=== PATIENT | male | born 1990 | race African-American/Black ===

== ENCOUNTER 2016-06-23 20:44 | Emergency (ER) | payer BC ==
--- NOTE | 2016-06-23 20:59 | EDM.PDOC ---
ED HPI RENAL/ - General Chief Complaint: Genitourinary Problem Stated Complaint: BLOOD IN URINE Time Seen by Provider: 06/23/16 20:59 Source of Information: Reports: Patient History Limitations: Reports: No limitations - History of Present Illness INITIAL COMMENTS - FREE TEXT/NARRATIVE: Patient is a 25-year-old male presents ED complaining of painful urination with hematuria. States it started approximately 4:30 this afternoon after running approximately 10 miles. States he run 10 + miles daily in preparation for marathon in August. States the pain is worsened with urination, notes increased frequency, and smaller amounts of urine with each frequency. States he's had similar symptoms approximately 3 years ago improved with drinking copious amounts of water. States last time he had sexual intercourse was one year ago. Denies any recent trauma to his genital area that could cause this hematuria. Nor is he complaining of fever/chills, abdominal pain, nausea/vomiting, flank discomfort, history of kidney stones, rash, recent upper respiratory infection, muscle soreness, or any additional complaints. Timing/Duration: Reports: Constant Location: Reports: urethral Quality: Reports: burning Severity: mild Worsens with: Reports: urinating Context: Reports: activity/exercise (runs 10 miles per day). Denies: sick contact, recent surgery, recent trauma Associated Symptoms: Reports: burning, dysuria, frequency, voiding small amounts , blood in urine. Denies: groin pain, testicular pain, penile discharge, fever/ chills, abdominal pain, nausea/vomiting Treatments [employer]: Reports: Other (see below) (none stated) - Related Data Allergies/ADRs: Allergies Allergy/AdvReac Type Severity Reaction Status Date / Time No Known Allergies Allergy Verified 06/23/16 21:00 Home Meds: Home Meds Ciprofloxacin [Ciprofloxacin HCl] 500 mg PO BID #14 tablet 06/23/16 [Rx] ED ROS GENERAL - Review of Systems Review Of Systems: See Below Constitutional: Reports: no symptoms Respiratory: Reports: no symptoms Cardiovascular: Reports: No symptoms GI/Abdominal: Denies: Abdominal pain, Nausea, Vomiting : Reports: dysuria, frequency, hematuria, pain, urgency. Denies: flank pain, urinary retention Musculoskeletal: Denies: back pain ED EXAM, RENAL/ - Physical Exam Exam: See Below Exam Limited By: No limitations General Appearance: alert, WD/WN, no apparent distress Eye Exam: bilateral eye: PERRL Ears: hearing grossly normal Throat/Mouth: Normal inspection, Normal oropharynx, Normal voice, No airway compromise Head: atraumatic, normocephalic Neck: normal inspection, supple, non-tender, full range of motion Respiratory/Chest: no respiratory distress, lungs clear, normal breath sounds, no accessory muscle use Cardiovascular: normal peripheral pulses, regular rate, rhythm GI/Abdominal: normal bowel sounds, soft, non tender, no organomegaly, no distention Back Exam: normal inspection, full range of motion. No: CVA tenderness (L), CVA tenderness (R) Neurological: alert, oriented, CN II-XII intact, normal cognition, no motor/ sensory deficits Psychiatric: normal affect, normal mood Skin Exam: Warm, Dry, Intact, Normal color Course - Vital Signs Last Recorded V/S: Last Vital Signs Temp 98.9 F 06/23/16 20:59 Pulse 60 06/23/16 20:59 Resp 16 06/23/16 20:59 BP 135/95 H 06/23/16 20:59 Pulse Ox 100 06/23/16 20:59 - Orders/Labs/Meds Orders: Active Orders 24 hr Category Date Time Status CULTURE URINE [RM] Stat Lab 06/23/16 21:31 Ordered UA W/MICROSCOPIC [URIN] Stat Lab 06/23/16 20:50 Results Labs: Laboratory Tests 06/23/16 Range/Units 20:50 Urine Color Red H (Yellow) Urine Appearance Clear (Clear) Urine pH 6.0 (5.0-8.0) Ur Specific [place] 1.020 (1.005-1.030) Urine Protein 3+ H (Negative) Urine Glucose (UA) Negative (Negative) Urine Ketones Trace H (Negative) Urine Occult Blood 3+ H (Negative) Urine Nitrite Positive H (Negative) Urine Bilirubin 2+ H (Negative) Urine Urobilinogen 1.0 (0.2-1.0) Ur Leukocyte Esterase 3+ H (Negative) - Re-Assessments/Exams Free Text/Narrative Re-Assessment/Exam: UA revealed blood tinged urine. Will await for results. If puss cells present will treat for acute cystitis with urine cultures obtained. If no puss cells present will complete more detailed further workup including labs and ct of the abdomen and pelvis to further delineate the cause of bleeding. 06/23/16 21:22 06/23/16 21:33 UA results were grossly positive for infection. Urine culture has been ordered. Ordered Levaquin 500 milligrams by mouth one time. In addition ordered Phenozopyridine 95mg one time as well. Will discharge patient home with instructions for UTI. Prescription for ciprofloxacin 500mg twice a day for 7 days provided. Departure - Departure Time of Disposition: 21:37 Disposition: Home, Self-Care 01 Condition: good Clinical Impression: UTI, Urinary tract infectious disease Prescriptions: Ciprofloxacin [Ciprofloxacin HCl] 500 mg PO BID #14 tablet Forms: ED Department Discharge Additional Instructions: UA was grossly positive for infection. Take cipro 500mg twice a day for 7 days. Push the fluids. Followup with a provider at [facility] at conclusion of therapy to ensure resolution of infection. Return to the E.D. for worsening pain, n/v, and/or fever/chills. - My Orders Last 24 Hours: My Active Orders 06/23/16 20:50 UA W/MICROSCOPIC [URIN] Stat 06/23/16 21:31 CULTURE URINE [RM] Stat - Assessment/Plan Last 24 Hours: My Active Orders 06/23/16 20:50 UA W/MICROSCOPIC [URIN] Stat 06/23/16 21:31 CULTURE URINE [RM] Stat
[2016-06-23 21:00] VITALS: BP 135/95
[2016-06-23] MEDS ORDERED: Levofloxacin 250 MG Tab PO ONE (21:31)
[2016-06-23] MEDS ORDERED: Phenazopyridine 95 MG Tab ONE (21:41)
[2016-06-24] MEDS ORDERED: Phenazopyridine 95 MG Tab PO ONE (21:33)
== END 2016-06-23 21:54 | disposition home or self-care (01) ==
LOC: JD.ED 20:44
DX: N39.0 Urinary tract infection, site not specified (principal)
CPT/HCPCS: 81001; 87086; 99283; A9270; 87088; 87186